=== PATIENT | male | born 1995 | race Caucasian/White ===

== ENCOUNTER 2018-07-07 09:15 | Emergency (ER) | payer SELFPAY, OTHER | END 2018-07-07 10:00 | disposition home or self-care (01) | LOC: FTE 09:15 | DX: R04.0 Epistaxis (principal) | CPT/HCPCS: 99282 ==

== ENCOUNTER 2018-10-22 22:37 | Emergency (ER) | payer SELFPAY ==
[2018-10-23] MEDS: FAMOTIDINE 20 MG TAB PO (01:29)
[2018-10-23 02:06] LABS: TROPONIN-I 0.016 ng/ml (0.000-0.120)
== END 2018-10-23 03:17 | disposition home or self-care (01) ==
LOC: FTE 22:37
DX: R07.2 Precordial pain (principal)
CPT/HCPCS: 71045; 84484; 93005; 99285-25